=== PATIENT | male | born 1950 | race Caucasian/White ===

== ENCOUNTER 2017-01-25 12:30 | Inpatient (IN) | payer MEDICARE, OTHER ==
--- NOTE | 2017-01-25 12:35 | ED Physician Chart ---
Chief Complaint/HPI - Patient Information Date Seen:: 01/25/17 Time Seen:: 12:31 Chief Complaint:: agitation History of Present Illness:: 66-year-old male history of stroke and dementia, brought in by EMS from alf facility with acute, worsening, constant, moderate to severe, agitation 2-3 days. Has associated increased resistance to care and will not take his medications. Also has been reportedly playing with his bowel movements. History limited as patient has underlying dementia History provided by EMS, EMS run sheet and transfer sheet Historian:: EMS Review:: Nurse's Note Reviewed, EMS run form Reviewed, Transfer documents Reviewed, Patient unable to respond Review of Systems - Review of Systems Other: Complete system review otherwise unremarkable except as noted in HPI. Past Medical History - Past Medical History Past Medical History: HTN, DM, CVA/TIA, Dementia Family History: None Social History: Non Smoker, No Alcohol, No Drug Use, Care Facility Surgical History: None Psychiatricy History: None Medication: Reviewed Family Medical History - Family Member Mother History Unknown: Yes Ethnicity: Non- Physical Exam - Physical Examination Other:: INITIAL VITAL SIGNS: Reviewed by me GENERAL: Alert oriented to first name only. Demented, confused. Uncooperative. No acute distress HEAD: Head is normocephalic and atraumatic EYES: EOMI. . No scleral icterus. No conjunctival injection ENT: Moist mucous membranes. NECK: Supple. No masses. Full range of motion RESPIRATORY: No tachypnea. Clear breath sounds bilaterally. No wheezing, rales, or rhonchi CV: Regular rate and rhythm. No murmurs, rubs, or gallops ABDOMEN: Soft, non-distended, non-tender. No guarding. No rebound. No masses. EXTREMITIES: No deformity. No cyanosis. No edema. SKIN: Warm and dry. No obvious rashes. NEUROLOGIC: Alert and oriented. Face is symmetric. Speech is normal. Moves all extremities equally. Motor and sensory distally intact. Labs/Radiology/EKG Results - EKG Interpretations Comments:: 12-lead EKG Interpretation by April Cavazos MD: Normal Sinus Rhythm with ventricular rate of 87 beats per minute Normal axis Normal intervals No acute ST or T wave changes. No obvious STEMI ED Septic Shock - . Is Septic Shock (SBP<90, OR Lactate>4 mmol\L) present?: No Reassessment (Disposition) - Reassessment Reassessment:: Patient has UTI. Gave oral ciprofloxacin. Patient can continue on oral medications. Patient medically cleared for admission to the geriatric psych unit. Reassessment Condition:: Unchanged - Diagnosis Diagnosis:: Psychosis, NOS UTI, with hematuria Hypertension Dementia Diabetes mellitus type 2 - Patient Disposition Discharge/Transfer:: Acute Care w/in this hosp Admitted to:: [facility] Admitting Medical Physician:: Jeffy Brock Admitting Psych Physician:: Srini Flynn Time:: 12:58 Condition at Disposition:: Stable ED Discharge Plan - Patient Disposition Admit/Discharge/Transfer: Acute Care w/in this hosp
[2017-01-25 12:55] LABS: % BASOPHILS 0.6 % (0.0-2.0); % EOSINOPHILS 3.8 % (0.0-5.0); % LYMPHOCYTES 34.6 % (20.0-50.0); % MONOCYTES 9.4 % (2.0-10.0); % NEUTROPHILS 51.6 % (40.0-80.0); HEMATOCRIT 39.4 % (39.0-49.0); HEMOGLOBIN 13.2 gm/dL (12.6-17.4); MEAN CELL VOLUME 88.2 fl (80-99); MEAN CORPUSCULAR HEMOGLOBIN 29.5 pg (27.0-31.0); MEAN CORPUSCULAR HGB CONC 33.5 pg (28.0-36.0); MEAN PLATELET VOLUME 9.2 fl; NEUTROPHILE ABSOLUTE 4.5 Th/cmm (1.8-8.0); PLATELET COUNT 320 Th/cmm (150-400); RED BLOOD COUNT 4.46 Mil/cmm (3.80-5.80); RED CELL DISTRIBUTION WIDTH 13.3 % (11.5-20.0); WHITE BLOOD COUNT 8.7 Th/cmm (4.8-10.8)
[2017-01-25 13:06] VITALS: BP 130/74
[2017-01-25 13:14] LABS: ACETAMINOPHEN < 10.0 ug/mL (10.0-30.0); ANION GAP 9.3 (7.0-16.0); BUN - UREA NITROGEN 21 mg/dL (7-25); BUN/CREATININE RATIO 26.3; CALCIUM SERUM 9.6 mg/dL (8.6-10.3); CARBON DIOXIDE 28.8 mEq/L (21.0-31.0); CHLORIDE 103 mEq/L (98-107); CHOLESTEROL 178 mg/dL (<200); CREATININE - SERUM 0.8 mg/dL (0.7-1.3); GLUCOSE 146 mg/dL (70-105); POTASSIUM SERUM 4.1 mEq/L (3.5-5.1); SODIUM SERUM 137 mEq/L (136-145); TRIGLYCERIDES 219 mg/dL (<150)
[2017-01-25 13:19] LABS: URINE BILIRUBIN NEGATIVE (NEGATIVE); URINE BLOOD MODERATE (NEGATIVE); URINE COLOR YELLOW; URINE GLUCOSE (UA) NEGATIVE (NEGATIVE); URINE KETONE NEGATIVE (NEGATIVE)
[2017-01-25 13:20] LABS: URINE PH 7.5; URINE PROTEIN 100 mg/dL (NEGATIVE)
[2017-01-25 13:23] LABS: PROTHROMBIN TIME (TEST) 10.4 SECONDS (9.5-11.5)
[2017-01-25 13:24] LABS: URINE RBC 15-20 /hpf (0-5)
[2017-01-25 13:25] LABS: URINE BACTERIA FEW /hpf (NONE SEEN); URINE EPITHELIAL CELLS FEW /lpf (FEW)
--- NOTE | 2017-01-26 04:56 | Psychosocial Evaluation ---
JUSTIFICATION FOR HOSPITALIZATION: The patient was sent from a nursing facility with combative behaviors, agitated, hitting staff, yelling, screaming. CHIEF COMPLAINT: Combative. HISTORY OF PRESENT ILLNESS: A 66-year-old male who I was following at [facility]. The patient was noted to be combative, agitated, restless, hitting staff members, hitting nursing staff, yelling, screaming. Staff could not control him. The patient was agitated on exam, irritable, not answering any questions. PAST PSYCHIATRIC HISTORY: He has had behavioral disturbances. LABORATORY DATA: Reviewed. MEDICATIONS: Reviewed. SOCIAL HISTORY: The patient is living at [facility], needing a higher level of care. He does have a friend that sometimes visits. Unclear drugs, alcohol or tobacco history. MENTAL STATUS EXAMINATION: Appearance stated age. Some eye contact. Speech, selectively mute. Withdrawn. Mood, not answering. Affect is flat. Thought processes seem confused. Thought content, no overt SI or HI, but he is combative, seems suspicious, possibly paranoid, aggressive. Poor insight. Poor judgment. Poor impulse control. PROVISIONAL DIAGNOSES: Psychosis, unspecified, strong, dementia rule out with cognitive decline seemingly present, also mood unspecified, anxiety unspecified. MEDICAL: Please see full History and Physical. ESTIMATED LENGTH OF STAY: 5-10 days. PATIENT'S STRENGTHS: Good access to care. WEAKNESSES: Not enough social support. ASSESSMENT: The patient is requiring inpatient hospitalization, seems suspicious, agitated, combative, hitting staff, unable to care for himself and resistant to care. PLAN: We will titrate medications as tolerated. Treatment plan includes group as well as milieu therapy. CONDITIONS FOR DISCHARGE: Improved mood, improved affect, control of his aggression. JOB# [id number]
[2017-01-26] MEDS: Atorvastatin Calcium 10 MG TAB PO SCH (11:06)
[2017-01-26] MEDS: Multivitamin w/ Minerals Tab PO SCH (11:06)
[2017-01-26 12:21] LABS: HEP B CORE IGM Negative (Negative); HEP C ANTIBODY 0.1 s/co ratio (0.0-0.9)
--- NOTE | 2017-01-26 13:17 | History & Physical ---
PATIENT IDENTIFICATION: A 66-year-old male. CHIEF COMPLAINT: "I don't want anything." HISTORY SOURCE: Reviewing the chart and talking to staff at the [facility]. HISTORY OF PRESENT ILLNESS: A 66-year-old male who resides at [facility], transferred here to [facility] for evaluation of increasing agitations. The patient was seen by Emergency Room MD and subsequently admitted to the hospital for further treatment. The patient refused to provide any history due to his behavior and possible multiple medical problems. PAST MEDICAL HISTORY: Remarkable for: 1. Left MCA CVA with right hemiplegia. 2. Diabetes. 3. Hypertension. 4. Peripheral vascular disease. 5. Right internal carotid artery stenosis. 6. Hyperlipidemia. 7. History of paroxysmal atrial fibrillation. 8. Aphasia. 9. History of C. diff colitis. MEDICATIONS: At the time of transfer, which have been reviewed and reconciled appropriately. SOCIAL HISTORY: He is a custodial resident. The patient has no documented smoking cigarette, alcohol or drug use. FAMILY MEDICAL HISTORY: Not available. ALLERGIES: THE PATIENT IS ALLERGIC TO CODEINE AND SULFA. REVIEW OF SYSTEMS: Unable to obtain. PHYSICAL EXAMINATION: GENERAL: The patient is a 66-year-old, alert, awake, lying in the bed without any acute distress. VITAL SIGNS: Temperature 98.6, pulse is 74, respiratory rate 18, blood pressure 136/70. SKIN: Warm to touch. HEENT: Normocephalic, atraumatic. Extraocular muscles are intact. Tongue was pink and coated. Poor dentition noted. No facial asymmetry. NECK: Supple, no JVD, no lymphadenopathy, thyromegaly. Right carotid bruit noted. HEART: Both heart sounds are irregularly irregular. Grade 2/6 systolic murmur noted. CHEST: Lung equal in expansion, no wheezing, no crackles. ABDOMEN: Soft. No guarding, no rigidity. Liver, spleen palpable. No palpable mass. EXTREMITIES: No edema, no cyanosis. Peripheral pulses are +1. No calf tenderness noted. NEUROLOGIC: Alert, awake, follows commands. There is significant amount of spasticity on the right upper and lower extremity noted, more on the right, more in the upper than lower. Unable to assess further neurological exam due to patient being noncooperative. AVAILABLE DIAGNOSTIC DATA: Performed in the Emergency Room, which include EKG has a sinus rhythm with premature atrial contraction noted. PT and PTTs are normal. Urine is unremarkable, has a large leuk esterase, 10-50 wbc, bacteria were few, moderate amount of blood, protein was also noted. Lipid panel was checked was 178 cholesterol and calcium 9.6. BUN and creatinine is normal. Random blood sugar 146. Electrolytes are normal. Chest x-ray is unavailable for review. TSH of 2.49. CLINICAL IMPRESSION: 1. Increasing agitations in 66-year-old resident of custodial, has underlying psychiatric history as well. Etiology of agitations ruled out, exacerbation of underlying psychotic illness precipitated by possible urinary tract infection. 2. Benign prostatic hypertrophy. 3. Diabetes mellitus. 4. Hypertension. 5. Hyperlipidemia. 6. Degenerative joint disease. 7. Cerebrovascular accident with right-sided hemiplegia. 8. History of paroxysmal atrial fibrillation. 9. Degenerative joint disease. 10. Fall risk. 11. Questionable Parkinson disease. PLAN: The patient has been admitted at this time to psychiatric unit. The patient will be placed on Macrodantin 100 mg b.i.d. to treat the patient's urinary tract infection. In the presence of right internal carotid artery stenosis, history of atrial fibrillation along with cerebrovascular accident, the patient needs to be anticoagulated in the presence of nonvalvular atrial fibrillation, which is paroxysmal, the patient will be placed on anticoagulation therapy with Eliquis for now. The patient will be also continued on his other medications for his hypertension and diabetes. Continue to check Glucoscan. We will continue Flomax and we will provide the fall precautions. General nursing care will be given as well. We will continue to follow this patient during his stay at Gerops[facility] Unit at the [facility]. I sincerely thank you, Dr. Flynn, for giving me the opportunity to participate in the patient of yours. JOB# [id number]
[2017-01-26] MEDS: Dabigatran Mesylate 75 mg Cap PO SCH (18:45)
--- NOTE | 2017-01-26 23:49 | Progress Notes ---
SUBJECTIVE: The patient was seen, chart reviewed, and discussed with staff. The patient is currently in the hospital, agitated, combative, more confused, hitting staff at the nursing facility, striking out, resistant to care. On [id number], the patient remains resistant to care, refusing his medications, for example yelling at me, screaming at me, rambling nonsensically, not making any sense, agitated, needing prompting for ADLs, and prompting for eating. ASSESSMENT: The patient remains confused, selectively mute, at other times screaming, still agitated, combative, escalates fast, refusing medications. PLAN: Continue to monitor. The patient may need a Riese petition if he continues to refuse medication. JOB# [id number]
[2017-01-27] MEDS: Dabigatran Mesylate 75 mg Cap PO SCH ×2 (09:50→17:58)
[2017-01-27] MEDS: Atorvastatin Calcium 10 MG TAB PO SCH (09:50)
[2017-01-27] MEDS: Multivitamin w/ Minerals Tab PO SCH (09:50)
--- NOTE | 2017-01-28 01:49 | Progress Notes ---
PATIENT'S IDENTIFICATION: A 66-year-old male. CHIEF COMPLAINT: Yelling and screaming "I don't want to talk." HISTORY OF PRESENT ILLNESS: A 66-year-old male seen by me yesterday and I am doing medical followup today. The patient is extremely agitated as per nursing staff. The patient does not want any medications by p.o. at all and he is combative. On today's examination, temperature 97.2, pulse 82, respiratory rate 19, blood pressure 142/75. I was unable to assess this patient further due to the patient being noncooperative. Medication list has been reviewed. No new labwork for my review. Clean-catch urine was consistent with urinary tract infection, 100,000 colonies of gram-negative rods are growing. CLINICAL IMPRESSIONS: 1. Complicated urinary tract infection. 2. Benign prostatic hypertrophy. 3. Diabetes. 4. Hypertension. 5. Peripheral vascular disease. 6. Hyperlipidemia. 7. History of cerebrovascular accident with right-sided hemiplegia. 8. Degenerative joint disease. 9. Fall risk. PLAN: Discussed with nursing staff about consideration of intramuscular medications to control his behavior followed by continuation of the medications which he really needs for his UTI along with anticoagulation therapy for his atrial fibrillation and other medical problems. The patient is to continue to have monitoring of his blood sugar and resume medication as he needs while he is in the hospital. Care plan has been reviewed and discussed. JOB# [id number]
--- NOTE | 2017-01-28 06:09 | Progress Notes ---
SUBJECTIVE: The patient was seen, chart reviewed, and discussed with staff. The patient remains agitated, yelling, screaming, combative at times, refusing his medications, refusing treatments, unfriendly, aggressive at times. The patient is not making any sense, selectively mute, refusing and resistant to care. Unable to be cared for at a lower level of care. ASSESSMENT: The patient remains symptomatic and not be cared for at a lower level of care, still yelling and screaming. He is refusing his treatment and medicine. PLAN: We will continue to monitor. I may need to follow Riese petition. The patient is still dangerous. JOB# [id number]
[2017-01-28] MEDS: Atorvastatin Calcium 10 MG TAB PO SCH (09:31)
[2017-01-28] MEDS: Dabigatran Mesylate 75 mg Cap PO SCH ×2 (09:34→16:12)
[2017-01-28] MEDS: Multivitamin w/ Minerals Tab PO SCH (09:34)
[2017-01-29] MEDS: Atorvastatin Calcium 10 MG TAB PO SCH ×2 (08:53→09:00)
[2017-01-29] MEDS: Dabigatran Mesylate 75 mg Cap PO SCH ×4 (08:54→17:58)
[2017-01-29] MEDS: Multivitamin w/ Minerals Tab PO SCH ×2 (08:55→09:00)
--- NOTE | 2017-01-29 10:58 | Progress Notes ---
SUBJECTIVE: The patient was seen, chart reviewed, discussed with staff. The patient remains irritable, upset, still with yelling and screaming episodes, refusing medications, resistant to care, combative, hitting nursing staff, yelling, nonsensical, disorganized, eating with prompting. ASSESSMENT: The patient refusing care, resistant to care, agitated, combative, violent, not able to be cared for at a lower level of care. PLAN: Encourage med compliance. We may need to file channing JOB# [id number] MTDLeon
--- NOTE | 2017-01-30 03:30 | Progress Notes ---
SUBJECTIVE: The patient seen, chart reviewed and discussed with staff. The patient remains upset, agitated, yelling, screaming episodes, hyperverbal, mumbling, still combative, not really getting along well with staff, resistant to care. Sleeping fairly well, eating well, but requiring prompting to eat, prompting for ADLs, resistant to medications, at times was spitting them out ____ did encourage medication compliance. ASSESSMENT: The patient remains symptomatic, combative, still hitting staff and resistant to care. We will continue to monitor. Encourage better medication compliance. [facility]# [id number]
[2017-01-30] MEDS: Atorvastatin Calcium 10 MG TAB PO SCH (11:13)
[2017-01-30] MEDS: Dabigatran Mesylate 75 mg Cap PO SCH ×2 (11:13→17:34)
[2017-01-30] MEDS: Multivitamin w/ Minerals Tab PO SCH (11:15)
--- NOTE | 2017-01-30 22:08 | Progress Notes ---
Covering for Dr. Flynn. Case discussed with staff of the patient, reviewed records. This is a 66-year-old male who was admitted on 01/25 because of agitation, irritability. The patient has been refusing medication; when I tried to talk to him about that, he would not answer me, he kept saying no; when I asked if he want to change medication, he said no, he said to not have any problem, he would not talk about it. He continues to be irritable, yelling, and screaming episodes, refusing medication, resistant to care, combative with the nursing staff, unpredictable, impulsive, very disorganized. I am not sure if he may need to be released and I will leave this up to Dr. Flynn since I will be seeing him only today. He is on Aricept 5 mg at bedtime and Lexapro 10 mg daily, Risperdal 0.5 mg daily, but he has not taken it, so it does not make sense to adjust the dose when he has not taken the medication and so far, we will continue to work with the patient in group therapy, milieu therapy, adjust medication as needed. JOB# [id number]
--- NOTE | 2017-02-01 05:13 | Progress Notes ---
SUBJECTIVE: The patient seen, chart reviewed, discussed with staff. The patient at this time remains symptomatic, yelling, screaming episodes, combative, trying to hit staff at times. Sleeping fairly well, eating well, withdrawn, isolative, refusing his medications, not amenable to care, poor historian, resistant to care. ASSESSMENT: The patient was resistant to care, refusing medications, dangerous, yelling, screaming and cursing. PLAN: Continue to monitor. The patient may need a Riese petition, if he continues to refuse treatment. JOB# [id number]
[2017-02-01] MEDS: Dabigatran Mesylate 75 mg Cap PO SCH ×2 (08:33→16:10)
[2017-02-01] MEDS: Atorvastatin Calcium 10 MG TAB PO SCH (08:33)
[2017-02-01] MEDS: Multivitamin w/ Minerals Tab PO SCH (08:33)
--- NOTE | 2017-02-02 04:31 | Progress Notes ---
SUBJECTIVE: The patient seen, chart reviewed, discussed with staff. The patient remains combative upset, yelling, screaming, still aggressive towards staff, refusing medications, giving no reason other than "no," still up pointing and posturing. ASSESSMENT: The patient remains combative, aggressive, yelling, aggressive towards staff, resistant to care. PLAN: Currently pending a Riese petition, monitor closely for any overt side effects, encouraged medication compliance. JOB# [id number]
[2017-02-02] MEDS: Atorvastatin Calcium 10 MG TAB PO SCH (08:18)
[2017-02-02] MEDS: Dabigatran Mesylate 75 mg Cap PO SCH ×2 (08:18→16:00)
[2017-02-02] MEDS: Multivitamin w/ Minerals Tab PO SCH (08:19)
[2017-02-02] MEDS ORDERED: Haloperidol Lactate 5 mg/mL 1mL Vial ONE (18:07)
[2017-02-02] MEDS ORDERED: Haloperidol Lactate 5 mg/mL 1mL Vial IM ONE (18:07)
--- NOTE | 2017-02-02 23:59 | Progress Notes ---
SUBJECTIVE: The patient is still refusing medications, agitated, combative, yelling, posturing, not safe for a lower level of care. The patient is currently pending a Riese petition, still combative towards staff, resistant to care, unable to be cared for at a lower level of care. ASSESSMENT: The patient remains combative, not safe for discharge, refusing treatment and medications. PLAN: Currently pending a Riese petition. We will continue to monitor, encourage medication compliance. [facility]# [id number]
[2017-02-03] MEDS: Atorvastatin Calcium 10 MG TAB PO SCH (08:00)
[2017-02-03] MEDS: Multivitamin w/ Minerals Tab PO SCH (08:01)
[2017-02-03] MEDS: Haloperidol Lactate 5 mg/mL 1mL Vial IM PRN (17:46)
--- NOTE | 2017-02-04 00:36 | Progress Notes ---
SUBJECTIVE: The patient seen, chart reviewed, discussed with staff. The patient remains aggressive, violent, agitated, attacking nursing staff, not saying much, disorganized, confused. Riese hearing was upheld. The patient will be getting medicated against his will. The patient is still gravely disabled, still violent and dangerous, needing prompting for ADLs, highly withdrawn, isolated. ASSESSMENT: The patient remains psychotic, combative, violent. PLAN: We will give medications against his will. We will initiate Haldol. The patient is not safe for discharge, still combative. JOB# [id number]
[2017-02-04] MEDS: Atorvastatin Calcium 10 MG TAB PO SCH (09:09)
[2017-02-04] MEDS: Multivitamin w/ Minerals Tab PO SCH (09:09)
--- NOTE | 2017-02-05 03:36 | Progress Notes ---
SUBJECTIVE: Chart reviewed and the patient interviewed. Also discussed the patient's condition with the staff and reviewed records and labs. The patient Riese and he started to take medications. The patient did take his medications orally this morning. The patient is still aggressive and still has violent behavior and still needs lots of redirections. The patient also is confused and is thought processes are disorganized. The patient also is still unable to provide any safe plan for self-care. ASSESSMENT: The patient is still psychotic and needs lots of redirections. TREATMENT PLAN: We will continue to monitor his behavior and his condition closely. Also, continue adjusting psychotropic medications and working on his behavioral modification and we will continue to follow up. JOB# [id number]
[2017-02-05] MEDS: Atorvastatin Calcium 10 MG TAB PO SCH (08:51)
[2017-02-05] MEDS: Multivitamin w/ Minerals Tab PO SCH (08:52)
--- NOTE | 2017-02-05 21:29 | Progress Notes ---
SUBJECTIVE: Chart reviewed and the patient interviewed. Also discussed the patient's condition with the staff and reviewed records and labs. The patient is still resisting care at times and is still reluctant to take medications, but at the same time, he started to take medications orally after ____. The patient also is still at times gets agitated and angry and in irritable mood. Also, his thoughts are disorganized. The patient also still need help with his ADLs and still at times gets to violent with staff, who tries to help him with his ADLs. Otherwise, no side effects of medications. ASSESSMENT: The patient is still psychotic and considered to be gravely disabled and can be dangerous to others. TREATMENT PLAN: We will continue monitoring his behavior and his condition closely. Also, continue adjusting psychotropic medications and we will continue to follow up closely. JOB# [id number]
[2017-02-06] MEDS: Atorvastatin Calcium 10 MG TAB PO SCH ×2 (10:11→10:12)
[2017-02-06] MEDS: Multivitamin w/ Minerals Tab PO SCH (10:26)
--- NOTE | 2017-02-07 01:57 | Progress Notes ---
SUBJECTIVE: The patient seen, chart reviewed, and discussed with staff. The patient remains symptomatic, still yelling, scratching, still refusing medications, currently under Riese petition, seems to be calming down a little bit, still __currently__ nonsensical, still refusing medications from time to time. ASSESSMENT: The patient is refusing medications and is agitated, combative, and violent. PLAN: Continue to monitor. Continue medications at current dose __, continue__ _ Haldol Decanoate. JOB# [id number] MTDD
[2017-02-07] MEDS: Multivitamin w/ Minerals Tab PO SCH (08:52)
[2017-02-07] MEDS: Atorvastatin Calcium 10 MG TAB PO SCH (08:52)
[2017-02-08] MEDS: Atorvastatin Calcium 10 MG TAB PO SCH ×2 (09:59→10:00)
[2017-02-08] MEDS: Multivitamin w/ Minerals Tab PO SCH ×2 (10:00)
[2017-02-08] MEDS: Haloperidol Lactate 5 mg/mL 1mL Vial IM PRN (10:20)
--- NOTE | 2017-02-08 19:36 | Progress Notes ---
SUBJECTIVE: The patient was seen, chart reviewed, and discussed with staff. The patient remains symptomatic, still with bizarre behaviors, psychotic behaviors, yelling, playing with feces, throwing feces, and the patient is still requiring emergency intramuscular backup. Riese petition was upheld, but the patient's behaviors still remain quite bizarre. The patient is currently on Haldol. Will need an increase of his dose. No side effects noted. No EPS for example, still resistive to care. ASSESSMENT: The patient with bizarre, disorganized, psychotic, and dangerous behaviors as noted, throwing feces, smearing feces, agitated, aggressive, and yelling. PLAN: Increase Haldol today. Monitor closely. The patient is not safe for discharge. JOB# [id number]
--- NOTE | 2017-02-09 00:04 | Progress Notes ---
SUBJECTIVE: The patient seen, chart reviewed, discussed with staff. The patient remains symptomatic, intermittently refusing medications still. Haldol Decanoate was ordered. The patient still lashing out at staff, still combative; however, he does seems to be calmer and more redirectable, plus the yelling and screaming episodes, seems to be tolerating medication at current dose. No overt side effects noted. Sleeping fairly well. Still awaiting prompting for eating and ADLs. ASSESSMENT AND PLAN: Some improvement noted, but still intermittently refusing medications. Currently on Haldol Decanoate. Poor insight. Poor impulse control. We will continue to monitor closely. JOB# [id number]
[2017-02-09] MEDS: Atorvastatin Calcium 10 MG TAB PO SCH (09:03)
[2017-02-09] MEDS: Multivitamin w/ Minerals Tab PO SCH (09:03)
[2017-02-09] MEDS: Haloperidol Lactate 5 mg/mL 1mL Vial IM PRN ×2 (09:04→16:18)
--- NOTE | 2017-02-09 16:53 | Internal Medicine Prog Note ---
Internal Medicine Subjective - Subjective Patient seen and examined:: with staff, chart reviewed Patient is:: awake, non-verbal, non-interactive Per staff patient is:: no adverse event, poor appetite, confused Internal Medicine Objective - Results Result Diagrams: 01/25/17 12:45 01/25/17 12:45 Recent Labs: Laboratory Last Values WBC 8.7 Th/cmm (4.8-10.8) 01/25/17 12:45 RBC 4.46 Mil/cmm (3.80-5.80) 01/25/17 12:45 Hgb 13.2 gm/dL (12.6-17.4) 01/25/17 12:45 Hct 39.4 % (39.0-49.0) 01/25/17 12:45 MCV 88.2 fl (80-99) 01/25/17 12:45 MCH 29.5 pg (27.0-31.0) 01/25/17 12:45 MCHC Differential 33.5 pg (28.0-36.0) 01/25/17 12:45 RDW 13.3 % (11.5-20.0) 01/25/17 12:45 Plt Count 320 Th/cmm (150-400) 01/25/17 12:45 MPV 9.2 fl 01/25/17 12:45 Neutrophils % 51.6 % (40.0-80.0) 01/25/17 12:45 Lymphocytes % 34.6 % (20.0-50.0) 01/25/17 12:45 Monocytes % 9.4 % (2.0-10.0) 01/25/17 12:45 Eosinophils % 3.8 % (0.0-5.0) 01/25/17 12:45 Basophils % 0.6 % (0.0-2.0) 01/25/17 12:45 PT 10.4 SECONDS (9.5-11.5) 01/25/17 12:45 INR 1.00 (0.5-1.4) 01/25/17 12:45 PTT (Actin FS) 25.0 SECONDS (26.0-38.0) L 01/25/17 12:45 Sodium 137 mEq/L (136-145) 01/25/17 12:45 Potassium 4.1 mEq/L (3.5-5.1) 01/25/17 12:45 Chloride 103 mEq/L (98-107) 01/25/17 12:45 Carbon Dioxide 28.8 mEq/L (21.0-31.0) 01/25/17 12:45 Anion Gap 9.3 (7.0-16.0) 01/25/17 12:45 BUN 21 mg/dL (7-25) 01/25/17 12:45 Creatinine 0.8 mg/dL (0.7-1.3) 01/25/17 12:45 Est GFR ( Amer) > 60.0 ml/min (>90) 01/25/17 12:45 Est GFR (Non-Af Amer) > 60.0 ml/min 01/25/17 12:45 BUN/Creatinine Ratio 26.3 01/25/17 12:45 Glucose 146 mg/dL (70-105) H 01/25/17 12:45 Calcium 9.6 mg/dL (8.6-10.3) 01/25/17 12:45 Triglycerides 219 mg/dL (<150) H 01/25/17 12:45 Cholesterol 178 mg/dL (<200) 01/25/17 12:45 LDL Cholesterol Direct 133 mg/dL (75-193) 01/25/17 12:45 HDL Cholesterol 22 mg/dL (23-92) L 01/25/17 12:45 TSH 2.49 uIU/ml (0.34-5.60) 01/25/17 12:45 Urine Source CLEAN C 01/25/17 12:45 Urine Color YELLOW 01/25/17 12:45 Urine Clarity SL. CLOUDY (CLEAR) 01/25/17 12:45 Urine pH 7.5 01/25/17 12:45 Ur Specific [place] 1.020 (1.005-1.030) 01/25/17 12:45 Urine Protein 100 mg/dL (NEGATIVE) H 01/25/17 12:45 Urine Glucose (UA) NEGATIVE mg/dL (NEGATIVE) 01/25/17 12:45 Urine Ketones NEGATIVE mg/dL (NEGATIVE) 01/25/17 12:45 Urine Blood MODERATE (NEGATIVE) H 01/25/17 12:45 Urine Nitrate NEGATIVE (NEGATIVE) 01/25/17 12:45 Urine Bilirubin NEGATIVE (NEGATIVE) 01/25/17 12:45 Urine Urobilinogen 1.0 E.U./dL (0.2 - 1.0) 01/25/17 12:45 Ur Leukocyte Esterase LARGE (NEGATIVE) H 01/25/17 12:45 Urine RBC 15-20 /hpf (0-5) 01/25/17 12:45 Urine WBC 10-25 /hpf (0-5) H 01/25/17 12:45 Ur Epithelial Cells FEW /lpf (FEW) 01/25/17 12:45 Urine Bacteria FEW /hpf (NONE SEEN) 01/25/17 12:45 Salicylates < 25.0 mg/L (30.0-100.0) L 01/25/17 12:45 Acetaminophen < 10.0 ug/mL (10.0-30.0) L 01/25/17 12:45 Hepatitis A IgM Ab Negative (Negative) 01/25/17 12:45 Hep Bs Antigen Negative (Negative) 01/25/17 12:45 Hep B Core IgM Ab Negative (Negative) 01/25/17 12:45 Hepatitis C Antibody 0.1 s/co ratio (0.0-0.9) 01/25/17 12:45 - Physical Exam Vitals and I&O: Vital Signs Temp 97.8 F 02/09/17 15:08 Pulse 79 02/09/17 15:08 Resp 16 02/09/17 15:08 BP 118/72 02/09/17 15:08 Pulse Ox 97 02/07/17 19:51 Intake & Output 02/08/17 02/09/17 02/09/17 18:59 06:59 18:59 Intake Total 850 120 Balance 850 120 Weight (lbs) 64.138 kg Intake: Oral 850 120 Other: # Voids 2 3 # Bowel Movements 1 Active Medications: Current Medications Atorvastatin Calcium (Lipitor) 10 mg PO DAILY MEHNAZ PRN Reason: Protocol Stop: 03/27/17 08:59 Last Admin: 02/09/17 09:03 Dose: Not Given Bromocriptine Mesylate (Parlodel) 2.5 mg PO HS MEHNAZ Stop: 03/26/17 20:59 Last Admin: 02/08/17 20:56 Dose: Not Given Donepezil HCl (Aricept) 5 mg PO DAILY MEHNAZ Stop: 03/27/17 08:59 Last Admin: 02/09/17 09:03 Dose: Not Given Escitalopram Oxalate (Lexapro) 10 mg PO DAILY MEHNAZ PRN Reason: Protocol Stop: 03/28/17 08:59 Last Admin: 02/09/17 09:03 Dose: Not Given Haloperidol (Haldol) 2 mg PO BID MEHNAZ PRN Reason: Protocol Stop: 04/09/17 12:26 Last Admin: 02/09/17 16:26 Dose: Not Given Haloperidol Decanoate (Haldol Dec) 25 mg IM QMONTH MEHNAZ PRN Reason: Protocol Stop: 04/08/17 16:59 Last Admin: 02/07/17 17:43 Dose: 25 mg Haloperidol Lactate (Haldol) 2 mg IM BID PRN PRN Reason: Agitation Stop: 04/04/17 11:47 Last Admin: 02/09/17 16:18 Dose: 2 mg Lisinopril (Zestril) 20 mg PO DAILY [facility] Stop: 03/27/17 08:59 Last Admin: 02/09/17 09:03 Dose: Not Given Tamsulosin HCl (Flomax) 0.4 mg PO DAILY [facility] Stop: 03/27/17 08:59 Last Admin: 02/09/17 09:03 Dose: Not Given General: demented HEENT: NC/AT, PERRLA Neck: Supple, No JVD Lungs: CTAB Cardiovascular: RRR, Normal S1, Normal S2 Abdomen: soft non-tender, globular, positive bowel sound Extremities: excoriation, contracture Neurological: no change Internal Medicine Assmt/Plan - Assessment Assessment: dm uti bph cva dementia htn - Plan Plan: cont on ada iss fall precation aspiration precaution dw rn Nutritional Asmnt/Malnutr-PDOC - Dietary Evaluation Malnutrition Findings (Please click <Entered> for more info): Nutritional Asmnt/Malnutrition Start: 01/30/17 11: 08 Text: Status: Complete Freq: Document 01/30/17 11:08 GSUN (Rec: 01/30/17 11:25 GSVERONICA [email or web address]) Nutritional Asmnt/Malnutrition Patient General Information Nutritional Screening Moderate Risk Screening Diagnosis Agitation Pertinent Medical Hx/Surgical Hx Psychosis (unspecified), DM, HTN, left MCA CVA with right hemiplegia, peripheral vascular disease, right internal carotid artery stenosis, hyperlipidemia, hx of paroxysmal atrial fibrillation, aphasia, hx of C diff. colitis Subjective Information 66 year old male from SNF. Pt appeared internally occupied, remained silent for all of RD' s questions, then finally yelled "get out of here!" Spoke to RN Lisette, pt has been refusing meds/vitals, however tolerating meals fine, no nutritional concerns. Avg PO intake 100% yesterday, meeting nutritional needs. Current Diet Order/ Nutrition Support [id number] Pertinent Medications Lipitor Pertinent Labs 01/25: glucose 146H, triglycerides 219H Nutritional Hx/Data Height 1.75 m Height (Calculated Centimeters) 175.3 Current Weight (lbs) 71.849 kg Weight (Calculated Kilograms) 71.8 Weight (Calculated Grams) 85029.0 [place] Body Weight 160lb Weight Status Approriate GI Symptoms Food Allergies No Cultural/Ethnic/Sikh Belief Unknown. Usual diet at home Unknown. Skin Integrity/Comment: Brandyn 16. Current %PO Good (75-100%) Estimated Nutritional Goals BEE in Kcals: Using Current wt Calories/Kcals/Kg 25-30kcal/kg Kcals Calculated 1795-2154kcal Protein: Using Current wt Protein g/kg/kg Protein Calculated 72g Fluid: ml 1795-2154ml Nutritional Problem 1. Problem Problem Altered nutrition related laboratory values related to Etiology DM aeb Signs/Symptoms: H&P dx, 01/25 glucose 146H Intervention/Recommendation Comments 1. Continue with [id number] diet . Current PO intake is adequate. Expected Outcomes/Goals Expected Outcomes/Goals 1. PO intake continue to meet at least 75% of estimated nutritional needs.
[2017-02-10] MEDS: Multivitamin w/ Minerals Tab PO SCH (09:09)
[2017-02-10] MEDS: Atorvastatin Calcium 10 MG TAB PO SCH (09:09)
--- NOTE | 2017-02-10 14:19 | Internal Medicine Prog Note ---
Internal Medicine Subjective - Subjective Service Date: 02/10/17 Internal Medicine Objective - Results Result Diagrams: 01/25/17 12:45 01/25/17 12:45 Recent Labs: Laboratory Last Values WBC 8.7 Th/cmm (4.8-10.8) 01/25/17 12:45 RBC 4.46 Mil/cmm (3.80-5.80) 01/25/17 12:45 Hgb 13.2 gm/dL (12.6-17.4) 01/25/17 12:45 Hct 39.4 % (39.0-49.0) 01/25/17 12:45 MCV 88.2 fl (80-99) 01/25/17 12:45 MCH 29.5 pg (27.0-31.0) 01/25/17 12:45 MCHC Differential 33.5 pg (28.0-36.0) 01/25/17 12:45 RDW 13.3 % (11.5-20.0) 01/25/17 12:45 Plt Count 320 Th/cmm (150-400) 01/25/17 12:45 MPV 9.2 fl 01/25/17 12:45 Neutrophils % 51.6 % (40.0-80.0) 01/25/17 12:45 Lymphocytes % 34.6 % (20.0-50.0) 01/25/17 12:45 Monocytes % 9.4 % (2.0-10.0) 01/25/17 12:45 Eosinophils % 3.8 % (0.0-5.0) 01/25/17 12:45 Basophils % 0.6 % (0.0-2.0) 01/25/17 12:45 PT 10.4 SECONDS (9.5-11.5) 01/25/17 12:45 INR 1.00 (0.5-1.4) 01/25/17 12:45 PTT (Actin FS) 25.0 SECONDS (26.0-38.0) L 01/25/17 12:45 Sodium 137 mEq/L (136-145) 01/25/17 12:45 Potassium 4.1 mEq/L (3.5-5.1) 01/25/17 12:45 Chloride 103 mEq/L (98-107) 01/25/17 12:45 Carbon Dioxide 28.8 mEq/L (21.0-31.0) 01/25/17 12:45 Anion Gap 9.3 (7.0-16.0) 01/25/17 12:45 BUN 21 mg/dL (7-25) 01/25/17 12:45 Creatinine 0.8 mg/dL (0.7-1.3) 01/25/17 12:45 Est GFR ( Amer) > 60.0 ml/min (>90) 01/25/17 12:45 Est GFR (Non-Af Amer) > 60.0 ml/min 01/25/17 12:45 BUN/Creatinine Ratio 26.3 01/25/17 12:45 Glucose 146 mg/dL (70-105) H 01/25/17 12:45 Calcium 9.6 mg/dL (8.6-10.3) 01/25/17 12:45 Triglycerides 219 mg/dL (<150) H 01/25/17 12:45 Cholesterol 178 mg/dL (<200) 01/25/17 12:45 LDL Cholesterol Direct 133 mg/dL (75-193) 01/25/17 12:45 HDL Cholesterol 22 mg/dL (23-92) L 01/25/17 12:45 TSH 2.49 uIU/ml (0.34-5.60) 01/25/17 12:45 Urine Source CLEAN C 01/25/17 12:45 Urine Color YELLOW 01/25/17 12:45 Urine Clarity SL. CLOUDY (CLEAR) 01/25/17 12:45 Urine pH 7.5 01/25/17 12:45 Ur Specific [place] 1.020 (1.005-1.030) 01/25/17 12:45 Urine Protein 100 mg/dL (NEGATIVE) H 01/25/17 12:45 Urine Glucose (UA) NEGATIVE mg/dL (NEGATIVE) 01/25/17 12:45 Urine Ketones NEGATIVE mg/dL (NEGATIVE) 01/25/17 12:45 Urine Blood MODERATE (NEGATIVE) H 01/25/17 12:45 Urine Nitrate NEGATIVE (NEGATIVE) 01/25/17 12:45 Urine Bilirubin NEGATIVE (NEGATIVE) 01/25/17 12:45 Urine Urobilinogen 1.0 E.U./dL (0.2 - 1.0) 01/25/17 12:45 Ur Leukocyte Esterase LARGE (NEGATIVE) H 01/25/17 12:45 Urine RBC 15-20 /hpf (0-5) 01/25/17 12:45 Urine WBC 10-25 /hpf (0-5) H 01/25/17 12:45 Ur Epithelial Cells FEW /lpf (FEW) 01/25/17 12:45 Urine Bacteria FEW /hpf (NONE SEEN) 01/25/17 12:45 Salicylates < 25.0 mg/L (30.0-100.0) L 01/25/17 12:45 Acetaminophen < 10.0 ug/mL (10.0-30.0) L 01/25/17 12:45 Hepatitis A IgM Ab Negative (Negative) 01/25/17 12:45 Hep Bs Antigen Negative (Negative) 01/25/17 12:45 Hep B Core IgM Ab Negative (Negative) 01/25/17 12:45 Hepatitis C Antibody 0.1 s/co ratio (0.0-0.9) 01/25/17 12:45 - Physical Exam Vitals and I&O: Vital Signs Temp 97.8 F 02/09/17 15:08 Pulse 79 02/09/17 15:08 Resp 18 02/09/17 20:00 BP 118/72 02/09/17 15:08 Pulse Ox 97 02/07/17 19:51 Intake & Output 02/09/17 02/10/17 02/10/17 18:59 06:59 18:59 Intake Total 1700 120 Balance 1700 120 Intake: Oral 1700 120 Other: # Voids 4 3 Active Medications: Current Medications Atorvastatin Calcium (Lipitor) 10 mg PO DAILY MEHNAZ PRN Reason: Protocol Stop: 03/27/17 08:59 Last Admin: 02/10/17 09:09 Dose: Not Given Bromocriptine Mesylate (Parlodel) 2.5 mg PO HS MEHNAZ Stop: 03/26/17 20:59 Last Admin: 02/09/17 21:03 Dose: 2.5 mg Donepezil HCl (Aricept) 5 mg PO DAILY MEHNAZ Stop: 03/27/17 08:59 Last Admin: 02/10/17 09:09 Dose: Not Given Escitalopram Oxalate (Lexapro) 10 mg PO DAILY MEHNAZ PRN Reason: Protocol Stop: 03/28/17 08:59 Last Admin: 02/10/17 08:48 Dose: 10 mg Haloperidol (Haldol) 2 mg PO BID MEHNAZ PRN Reason: Protocol Stop: 04/09/17 12:26 Last Admin: 02/10/17 08:48 Dose: 2 mg Haloperidol Decanoate (Haldol Dec) 25 mg IM QMONTH MEHNAZ PRN Reason: Protocol Stop: 04/08/17 16:59 Last Admin: 02/07/17 17:43 Dose: 25 mg Haloperidol Lactate (Haldol) 2 mg IM BID PRN PRN Reason: Agitation Stop: 04/04/17 11:47 Last Admin: 02/09/17 16:18 Dose: 2 mg Lisinopril (Zestril) 20 mg PO DAILY [facility] Stop: 03/27/17 08:59 Last Admin: 02/10/17 09:09 Dose: Not Given Tamsulosin HCl (Flomax) 0.4 mg PO DAILY [facility] Stop: 03/27/17 08:59 Last Admin: 02/10/17 09:09 Dose: Not Given Internal Medicine Assmt/Plan - Assessment Assessment: dm uti bph cva dementia htn - Plan Plan: MONITOR GLUCOSE FALL PRECAUTIONS CPM Nutritional Asmnt/Malnutr-PDOC - Dietary Evaluation Malnutrition Findings (Please click <Entered> for more info): Nutritional Asmnt/Malnutrition Start: 01/30/17 11: 08 Text: Status: Complete Freq: Document 01/30/17 11:08 GSUN (Rec: 01/30/17 11:25 GSUN [email or web address]) Nutritional Asmnt/Malnutrition Patient General Information Nutritional Screening Moderate Risk Screening Diagnosis Agitation Pertinent Medical Hx/Surgical Hx Psychosis (unspecified), DM, HTN, left MCA CVA with right hemiplegia, peripheral vascular disease, right internal carotid artery stenosis, hyperlipidemia, hx of paroxysmal atrial fibrillation, aphasia, hx of C diff. colitis Subjective Information 66 year old male from SNF. Pt appeared internally occupied, remained silent for all of RD' s questions, then finally yelled "get out of here!" Spoke to TARAH Knox, pt has been refusing meds/vitals, however tolerating meals fine, no nutritional concerns. Avg PO intake 100% yesterday, meeting nutritional needs. Current Diet Order/ Nutrition Support [id number] Pertinent Medications Lipitor Pertinent Labs 01/25: glucose 146H, triglycerides 219H Nutritional Hx/Data Height 5 ft 9 in Height (Calculated Centimeters) 175.3 Current Weight (lbs) 158 lb 6.4 oz Weight (Calculated Kilograms) 71.8 Weight (Calculated Grams) 66169.0 [place] Body Weight 160lb Weight Status Approriate GI Symptoms Food Allergies No Cultural/Ethnic/Gnosticism Belief Unknown. Usual diet at home Unknown. Skin Integrity/Comment: Brandyn 16. Current %PO Good (75-100%) Estimated Nutritional Goals BEE in Kcals: Using Current wt Calories/Kcals/Kg 25-30kcal/kg Kcals Calculated 1795-2154kcal Protein: Using Current wt Protein g/kg/kg Protein Calculated 72g Fluid: ml 1795-2154ml Nutritional Problem 1. Problem Problem Altered nutrition related laboratory values related to Etiology DM aeb Signs/Symptoms: H&P dx, 01/25 glucose 146H Intervention/Recommendation Comments 1. Continue with [id number] diet . Current PO intake is adequate. Expected Outcomes/Goals Expected Outcomes/Goals 1. PO intake continue to meet at least 75% of estimated nutritional needs.
--- NOTE | 2017-02-10 18:59 | Progress Notes ---
SUBJECTIVE: The patient still remains symptomatic, refusing medications, smearing feces, psychotic and disorganized behaviors, refusing interview, withdrawn, guarded, lashing out, still physical altercations with staff, and resistant to care. No EPS noted. No side effects. ASSESSMENT: The patient remains symptomatic, still aggressive, refusing medications, needing intramuscular injections. PLAN: We will continue to monitor increased medications. The patient is not safe for discharge. Encourage med compliance. [facility]# [id number]
--- NOTE | 2017-02-10 23:15 | Progress Notes ---
SUBJECTIVE: The patient was seen, chart reviewed, and discussed with staff. The patient remains symptomatic, still upset, lashing out at staff at times, still at times refusing medications. Continued concerns for his safety and the safety of staff. The patient with disorganized and psychotic behaviors, smearing feces while in the unit. Tolerant to medications. No side effects. ASSESSMENT: The patient remains resistive to care, still agitated, refusing medications, under [place] petition. PLAN: Continue to monitor. Continue medications at current dose. No side effects noted. No EPS. The patient remains symptomatic. Not safe for discharge. JOB# [id number]
[2017-02-11] MEDS: Atorvastatin Calcium 10 MG TAB PO SCH (09:34)
[2017-02-11] MEDS: Multivitamin w/ Minerals Tab PO SCH (09:35)
--- NOTE | 2017-02-11 12:32 | Internal Medicine Prog Note ---
Internal Medicine Subjective - Subjective Patient seen and examined:: with staff, chart reviewed Patient is:: awake, verbal, interactive Per staff patient is:: no adverse event, confused Internal Medicine Objective - Results Result Diagrams: 01/25/17 12:45 01/25/17 12:45 Recent Labs: Laboratory Last Values WBC 8.7 Th/cmm (4.8-10.8) 01/25/17 12:45 RBC 4.46 Mil/cmm (3.80-5.80) 01/25/17 12:45 Hgb 13.2 gm/dL (12.6-17.4) 01/25/17 12:45 Hct 39.4 % (39.0-49.0) 01/25/17 12:45 MCV 88.2 fl (80-99) 01/25/17 12:45 MCH 29.5 pg (27.0-31.0) 01/25/17 12:45 MCHC Differential 33.5 pg (28.0-36.0) 01/25/17 12:45 RDW 13.3 % (11.5-20.0) 01/25/17 12:45 Plt Count 320 Th/cmm (150-400) 01/25/17 12:45 MPV 9.2 fl 01/25/17 12:45 Neutrophils % 51.6 % (40.0-80.0) 01/25/17 12:45 Lymphocytes % 34.6 % (20.0-50.0) 01/25/17 12:45 Monocytes % 9.4 % (2.0-10.0) 01/25/17 12:45 Eosinophils % 3.8 % (0.0-5.0) 01/25/17 12:45 Basophils % 0.6 % (0.0-2.0) 01/25/17 12:45 PT 10.4 SECONDS (9.5-11.5) 01/25/17 12:45 INR 1.00 (0.5-1.4) 01/25/17 12:45 PTT (Actin FS) 25.0 SECONDS (26.0-38.0) L 01/25/17 12:45 Sodium 137 mEq/L (136-145) 01/25/17 12:45 Potassium 4.1 mEq/L (3.5-5.1) 01/25/17 12:45 Chloride 103 mEq/L (98-107) 01/25/17 12:45 Carbon Dioxide 28.8 mEq/L (21.0-31.0) 01/25/17 12:45 Anion Gap 9.3 (7.0-16.0) 01/25/17 12:45 BUN 21 mg/dL (7-25) 01/25/17 12:45 Creatinine 0.8 mg/dL (0.7-1.3) 01/25/17 12:45 Est GFR ( Amer) > 60.0 ml/min (>90) 01/25/17 12:45 Est GFR (Non-Af Amer) > 60.0 ml/min 01/25/17 12:45 BUN/Creatinine Ratio 26.3 01/25/17 12:45 Glucose 146 mg/dL (70-105) H 01/25/17 12:45 Calcium 9.6 mg/dL (8.6-10.3) 01/25/17 12:45 Triglycerides 219 mg/dL (<150) H 01/25/17 12:45 Cholesterol 178 mg/dL (<200) 01/25/17 12:45 LDL Cholesterol Direct 133 mg/dL (75-193) 01/25/17 12:45 HDL Cholesterol 22 mg/dL (23-92) L 01/25/17 12:45 TSH 2.49 uIU/ml (0.34-5.60) 01/25/17 12:45 Urine Source CLEAN C 01/25/17 12:45 Urine Color YELLOW 01/25/17 12:45 Urine Clarity SL. CLOUDY (CLEAR) 01/25/17 12:45 Urine pH 7.5 01/25/17 12:45 Ur Specific [place] 1.020 (1.005-1.030) 01/25/17 12:45 Urine Protein 100 mg/dL (NEGATIVE) H 01/25/17 12:45 Urine Glucose (UA) NEGATIVE mg/dL (NEGATIVE) 01/25/17 12:45 Urine Ketones NEGATIVE mg/dL (NEGATIVE) 01/25/17 12:45 Urine Blood MODERATE (NEGATIVE) H 01/25/17 12:45 Urine Nitrate NEGATIVE (NEGATIVE) 01/25/17 12:45 Urine Bilirubin NEGATIVE (NEGATIVE) 01/25/17 12:45 Urine Urobilinogen 1.0 E.U./dL (0.2 - 1.0) 01/25/17 12:45 Ur Leukocyte Esterase LARGE (NEGATIVE) H 01/25/17 12:45 Urine RBC 15-20 /hpf (0-5) 01/25/17 12:45 Urine WBC 10-25 /hpf (0-5) H 01/25/17 12:45 Ur Epithelial Cells FEW /lpf (FEW) 01/25/17 12:45 Urine Bacteria FEW /hpf (NONE SEEN) 01/25/17 12:45 Salicylates < 25.0 mg/L (30.0-100.0) L 01/25/17 12:45 Acetaminophen < 10.0 ug/mL (10.0-30.0) L 01/25/17 12:45 Hepatitis A IgM Ab Negative (Negative) 01/25/17 12:45 Hep Bs Antigen Negative (Negative) 01/25/17 12:45 Hep B Core IgM Ab Negative (Negative) 01/25/17 12:45 Hepatitis C Antibody 0.1 s/co ratio (0.0-0.9) 01/25/17 12:45 - Physical Exam Vitals and I&O: Vital Signs Temp 98.2 F 02/10/17 14:37 Pulse 91 02/10/17 14:37 Resp 18 02/10/17 20:00 BP 117/63 02/10/17 14:37 Pulse Ox 98 02/10/17 14:37 Intake & Output 02/10/17 02/11/17 02/11/17 18:59 06:59 18:59 Intake Total 1200 Balance 1200 Intake: Oral 1200 Other: # Bowel Movements 1 Active Medications: Current Medications Atorvastatin Calcium (Lipitor) 10 mg PO DAILY MEHNAZ PRN Reason: Protocol Stop: 03/27/17 08:59 Last Admin: 02/11/17 09:34 Dose: Not Given Bromocriptine Mesylate (Parlodel) 2.5 mg PO HS [facility] Stop: 03/26/17 20:59 Last Admin: 02/10/17 20:33 Dose: 2.5 mg Donepezil HCl (Aricept) 5 mg PO DAILY MEHNAZ Stop: 03/27/17 08:59 Last Admin: 02/11/17 09:34 Dose: 5 mg Escitalopram Oxalate (Lexapro) 10 mg PO DAILY MEHNAZ PRN Reason: Protocol Stop: 03/28/17 08:59 Last Admin: 02/11/17 09:34 Dose: 10 mg Haloperidol (Haldol) 2 mg PO BID MEHNAZ PRN Reason: Protocol Stop: 04/09/17 12:26 Last Admin: 02/11/17 09:34 Dose: 2 mg Haloperidol Decanoate (Haldol Dec) 25 mg IM QMONTH MEHNAZ PRN Reason: Protocol Stop: 04/08/17 16:59 Last Admin: 02/07/17 17:43 Dose: 25 mg Haloperidol Lactate (Haldol) 2 mg IM BID PRN PRN Reason: Agitation Stop: 04/04/17 11:47 Last Admin: 02/09/17 16:18 Dose: 2 mg Lisinopril (Zestril) 20 mg PO DAILY [facility] Stop: 03/27/17 08:59 Last Admin: 02/11/17 09:34 Dose: Not Given Tamsulosin HCl (Flomax) 0.4 mg PO DAILY [facility] Stop: 03/27/17 08:59 Last Admin: 02/11/17 09:35 Dose: Not Given General: demented HEENT: NC/AT, PERRLA Neck: Supple, No JVD Lungs: CTAB Cardiovascular: RRR, Normal S1, Normal S2 Abdomen: soft non-tender, globular Extremities: excoriation, contracture Neurological: no change Internal Medicine Assmt/Plan - Assessment Assessment: dm uti bph cva dementia htn - Plan Plan: cont on ada iss fall precation aspiration precaution dw rn Nutritional Asmnt/Malnutr-PDOC - Dietary Evaluation Malnutrition Findings (Please click <Entered> for more info): Nutritional Asmnt/Malnutrition Start: 01/30/17 11: 08 Text: Status: Complete Freq: Document 01/30/17 11:08 GSUN (Rec: 01/30/17 11:25 GSUN [email or web address]) Nutritional Asmnt/Malnutrition Patient General Information Nutritional Screening Moderate Risk Screening Diagnosis Agitation Pertinent Medical Hx/Surgical Hx Psychosis (unspecified), DM, HTN, left MCA CVA with right hemiplegia, peripheral vascular disease, right internal carotid artery stenosis, hyperlipidemia, hx of paroxysmal atrial fibrillation, aphasia, hx of C diff. colitis Subjective Information 66 year old male from SNF. Pt appeared internally occupied, remained silent for all of RD' s questions, then finally yelled "get out of here!" Spoke to RN Lisette, pt has been refusing meds/vitals, however tolerating meals fine, no nutritional concerns. Avg PO intake 100% yesterday, meeting nutritional needs. Current Diet Order/ Nutrition Support [address] Pertinent Medications Lipitor Pertinent Labs 01/25: glucose 146H, triglycerides 219H Nutritional Hx/Data Height 1.75 m Height (Calculated Centimeters) 175.3 Current Weight (lbs) 71.849 kg Weight (Calculated Kilograms) 71.8 Weight (Calculated Grams) 31624.0 [place] Body Weight 160lb Weight Status Approriate GI Symptoms Food Allergies No Cultural/Ethnic/Anabaptist Belief Unknown. Usual diet at home Unknown. Skin Integrity/Comment: Brandyn 16. Current %PO Good (75-100%) Estimated Nutritional Goals BEE in Kcals: Using Current wt Calories/Kcals/Kg 25-30kcal/kg Kcals Calculated 1795-2154kcal Protein: Using Current wt Protein g/kg/kg Protein Calculated 72g Fluid: ml 1795-2154ml Nutritional Problem 1. Problem Problem Altered nutrition related laboratory values related to Etiology DM aeb Signs/Symptoms: H&P dx, 01/25 glucose 146H Intervention/Recommendation Comments 1. Continue with [address] diet . Current PO intake is adequate. Expected Outcomes/Goals Expected Outcomes/Goals 1. PO intake continue to meet at least 75% of estimated nutritional needs.
--- NOTE | 2017-02-12 03:47 | Progress Notes ---
SUBJECTIVE: The patient was seen, chart reviewed, and discussed with staff. Staff noted some improvement. The patient seems to be calmer, more cooperative, less yelling episodes, less screaming episode, still somewhat bizarre in his demeanor, limited ____, not really able to participate in a meaningful conversation. Less resistant to care. No longer striking out. Sleeping fairly well, eating with prompting, and ADLs with prompting. ASSESSMENT: The patient remains symptomatic, still with yelling behaviors, but less. He does appear to be less agitated and aggressive. PLAN: We will continue to monitor. The patient seems to be tolerant of medications. For example, no extrapyramidal side effects noted. He does not appear, however, sedated. JOB# [id number]
[2017-02-12] MEDS: Atorvastatin Calcium 10 MG TAB PO SCH (08:33)
[2017-02-12] MEDS: Multivitamin w/ Minerals Tab PO SCH (08:33)
--- NOTE | 2017-02-12 20:11 | Internal Medicine Prog Note ---
Internal Medicine Subjective - Subjective Patient seen and examined:: with staff, chart reviewed Patient is:: awake, verbal, interactive Per staff patient is:: no adverse event, noncompliant, confused Internal Medicine Objective - Results Result Diagrams: 01/25/17 12:45 01/25/17 12:45 Recent Labs: Laboratory Last Values WBC 8.7 Th/cmm (4.8-10.8) 01/25/17 12:45 RBC 4.46 Mil/cmm (3.80-5.80) 01/25/17 12:45 Hgb 13.2 gm/dL (12.6-17.4) 01/25/17 12:45 Hct 39.4 % (39.0-49.0) 01/25/17 12:45 MCV 88.2 fl (80-99) 01/25/17 12:45 MCH 29.5 pg (27.0-31.0) 01/25/17 12:45 MCHC Differential 33.5 pg (28.0-36.0) 01/25/17 12:45 RDW 13.3 % (11.5-20.0) 01/25/17 12:45 Plt Count 320 Th/cmm (150-400) 01/25/17 12:45 MPV 9.2 fl 01/25/17 12:45 Neutrophils % 51.6 % (40.0-80.0) 01/25/17 12:45 Lymphocytes % 34.6 % (20.0-50.0) 01/25/17 12:45 Monocytes % 9.4 % (2.0-10.0) 01/25/17 12:45 Eosinophils % 3.8 % (0.0-5.0) 01/25/17 12:45 Basophils % 0.6 % (0.0-2.0) 01/25/17 12:45 PT 10.4 SECONDS (9.5-11.5) 01/25/17 12:45 INR 1.00 (0.5-1.4) 01/25/17 12:45 PTT (Actin FS) 25.0 SECONDS (26.0-38.0) L 01/25/17 12:45 Sodium 137 mEq/L (136-145) 01/25/17 12:45 Potassium 4.1 mEq/L (3.5-5.1) 01/25/17 12:45 Chloride 103 mEq/L (98-107) 01/25/17 12:45 Carbon Dioxide 28.8 mEq/L (21.0-31.0) 01/25/17 12:45 Anion Gap 9.3 (7.0-16.0) 01/25/17 12:45 BUN 21 mg/dL (7-25) 01/25/17 12:45 Creatinine 0.8 mg/dL (0.7-1.3) 01/25/17 12:45 Est GFR ( Amer) > 60.0 ml/min (>90) 01/25/17 12:45 Est GFR (Non-Af Amer) > 60.0 ml/min 01/25/17 12:45 BUN/Creatinine Ratio 26.3 01/25/17 12:45 Glucose 146 mg/dL (70-105) H 01/25/17 12:45 Calcium 9.6 mg/dL (8.6-10.3) 01/25/17 12:45 Triglycerides 219 mg/dL (<150) H 01/25/17 12:45 Cholesterol 178 mg/dL (<200) 01/25/17 12:45 LDL Cholesterol Direct 133 mg/dL (75-193) 01/25/17 12:45 HDL Cholesterol 22 mg/dL (23-92) L 01/25/17 12:45 TSH 2.49 uIU/ml (0.34-5.60) 01/25/17 12:45 Urine Source CLEAN C 01/25/17 12:45 Urine Color YELLOW 01/25/17 12:45 Urine Clarity SL. CLOUDY (CLEAR) 01/25/17 12:45 Urine pH 7.5 01/25/17 12:45 Ur Specific [place] 1.020 (1.005-1.030) 01/25/17 12:45 Urine Protein 100 mg/dL (NEGATIVE) H 01/25/17 12:45 Urine Glucose (UA) NEGATIVE mg/dL (NEGATIVE) 01/25/17 12:45 Urine Ketones NEGATIVE mg/dL (NEGATIVE) 01/25/17 12:45 Urine Blood MODERATE (NEGATIVE) H 01/25/17 12:45 Urine Nitrate NEGATIVE (NEGATIVE) 01/25/17 12:45 Urine Bilirubin NEGATIVE (NEGATIVE) 01/25/17 12:45 Urine Urobilinogen 1.0 E.U./dL (0.2 - 1.0) 01/25/17 12:45 Ur Leukocyte Esterase LARGE (NEGATIVE) H 01/25/17 12:45 Urine RBC 15-20 /hpf (0-5) 01/25/17 12:45 Urine WBC 10-25 /hpf (0-5) H 01/25/17 12:45 Ur Epithelial Cells FEW /lpf (FEW) 01/25/17 12:45 Urine Bacteria FEW /hpf (NONE SEEN) 01/25/17 12:45 Salicylates < 25.0 mg/L (30.0-100.0) L 01/25/17 12:45 Acetaminophen < 10.0 ug/mL (10.0-30.0) L 01/25/17 12:45 Hepatitis A IgM Ab Negative (Negative) 01/25/17 12:45 Hep Bs Antigen Negative (Negative) 01/25/17 12:45 Hep B Core IgM Ab Negative (Negative) 01/25/17 12:45 Hepatitis C Antibody 0.1 s/co ratio (0.0-0.9) 01/25/17 12:45 - Physical Exam Vitals and I&O: Vital Signs Temp 98.1 F 02/12/17 16:26 Pulse 85 02/12/17 16:26 Resp 20 02/12/17 16:26 BP 136/78 02/12/17 16:26 Pulse Ox 97 02/12/17 16:26 Intake & Output 02/12/17 02/12/17 02/13/17 06:59 18:59 06:59 Intake Total 800 120 Balance 800 120 Intake: Oral 800 120 Other: # Voids 4 1 # Bowel Movements 2 Active Medications: Current Medications Atorvastatin Calcium (Lipitor) 10 mg PO DAILY [facility] PRN Reason: Protocol Stop: 03/27/17 08:59 Last Admin: 02/12/17 08:33 Dose: 10 mg Bromocriptine Mesylate (Parlodel) 2.5 mg PO HS [facility] Stop: 03/26/17 20:59 Last Admin: 02/11/17 20:49 Dose: 2.5 mg Donepezil HCl (Aricept) 5 mg PO DAILY [facility] Stop: 03/27/17 08:59 Last Admin: 02/12/17 08:33 Dose: 5 mg Escitalopram Oxalate (Lexapro) 10 mg PO DAILY [facility] PRN Reason: Protocol Stop: 03/28/17 08:59 Last Admin: 02/12/17 08:33 Dose: 10 mg Haloperidol (Haldol) 2 mg PO BID [facility] PRN Reason: Protocol Stop: 04/09/17 12:26 Last Admin: 02/12/17 16:52 Dose: 2 mg Haloperidol Decanoate (Haldol Dec) 25 mg IM QMONTH [facility] PRN Reason: Protocol Stop: 04/08/17 16:59 Last Admin: 02/07/17 17:43 Dose: 25 mg Haloperidol Lactate (Haldol) 2 mg IM BID PRN PRN Reason: Agitation Stop: 04/04/17 11:47 Last Admin: 02/09/17 16:18 Dose: 2 mg Lisinopril (Zestril) 20 mg PO DAILY [facility] Stop: 03/27/17 08:59 Last Admin: 02/12/17 08:33 Dose: Not Given Tamsulosin HCl (Flomax) 0.4 mg PO DAILY [facility] Stop: 03/27/17 08:59 Last Admin: 02/12/17 08:33 Dose: 0.4 mg General: demented HEENT: NC/AT, PERRLA Neck: Supple, No JVD Lungs: CTAB Cardiovascular: RRR, Normal S1, Normal S2, without murmur Abdomen: soft non-tender, globular, positive bowel sound Extremities: excoriation Neurological: no change Internal Medicine Assmt/Plan - Assessment Assessment: dm uti bph cva dementia htn - Plan Plan: cont on ada iss fall precation aspiration precaution dw rn Nutritional Asmnt/Malnutr-PDOC - Dietary Evaluation Malnutrition Findings (Please click <Entered> for more info): Nutritional Asmnt/Malnutrition Start: 01/30/17 11: 08 Text: Status: Complete Freq: Document 01/30/17 11:08 GSUN (Rec: 01/30/17 11:25 [facility] Nutritional Asmnt/Malnutrition Patient General Information Nutritional Screening Moderate Risk Screening Diagnosis Agitation Pertinent Medical Hx/Surgical Hx Psychosis (unspecified), DM, HTN, left MCA CVA with right hemiplegia, peripheral vascular disease, right internal carotid artery stenosis, hyperlipidemia, hx of paroxysmal atrial fibrillation, aphasia, hx of C diff. colitis Subjective Information 66 year old male from SNF. Pt appeared internally occupied, remained silent for all of RD' s questions, then finally yelled "get out of here!" Spoke to RN Lisette, pt has been refusing meds/vitals, however tolerating meals fine, no nutritional concerns. Avg PO intake 100% yesterday, meeting nutritional needs. Current Diet Order/ Nutrition Support [id number] Pertinent Medications Lipitor Pertinent Labs 01/25: glucose 146H, triglycerides 219H Nutritional Hx/Data Height 1.75 m Height (Calculated Centimeters) 175.3 Current Weight (lbs) 71.849 kg Weight (Calculated Kilograms) 71.8 Weight (Calculated Grams) 34281.0 [place] Body Weight 160lb Weight Status Approriate GI Symptoms Food Allergies No Cultural/Ethnic/Yazidi Belief Unknown. Usual diet at home Unknown. Skin Integrity/Comment: Brandyn 16. Current %PO Good (75-100%) Estimated Nutritional Goals BEE in Kcals: Using Current wt Calories/Kcals/Kg 25-30kcal/kg Kcals Calculated 1795-2154kcal Protein: Using Current wt Protein g/kg/kg Protein Calculated 72g Fluid: ml 1795-2154ml Nutritional Problem 1. Problem Problem Altered nutrition related laboratory values related to Etiology DM aeb Signs/Symptoms: H&P dx, 01/25 glucose 146H Intervention/Recommendation Comments 1. Continue with [id number] diet . Current PO intake is adequate. Expected Outcomes/Goals Expected Outcomes/Goals 1. PO intake continue to meet at least 75% of estimated nutritional needs.
--- NOTE | 2017-02-12 20:59 | Progress Notes ---
SUBJECTIVE: The patient seen, chart reviewed, discussed with staff. The patient seems to be improving albeit slowly, more cooperative, less yelling episodes, less lashing out, less aggressive, less violent towards staff, more amenable to care. He is taking his medications, but is needing some prompting, tolerant to medications. No side effects, no EPS. Sleeping fairly well, eating with prompting. ASSESSMENT: Improvement noted, seems to be calmer, less aggressive, less screaming episodes. PLAN: Continue to encourage medication compliance. We will continue to monitor and monitor for any side effects. JOB# [id number]
[2017-02-13] MEDS: Multivitamin w/ Minerals Tab PO SCH (08:05)
[2017-02-13] MEDS: Atorvastatin Calcium 10 MG TAB PO SCH (08:05)
--- NOTE | 2017-02-13 13:12 | Internal Medicine Prog Note ---
Internal Medicine Subjective - Subjective Service Date: 02/13/17 Patient seen and examined:: with staff Patient is:: awake Per staff patient is:: no adverse event Internal Medicine Objective - Results Result Diagrams: 01/25/17 12:45 01/25/17 12:45 Recent Labs: Laboratory Last Values WBC 8.7 Th/cmm (4.8-10.8) 01/25/17 12:45 RBC 4.46 Mil/cmm (3.80-5.80) 01/25/17 12:45 Hgb 13.2 gm/dL (12.6-17.4) 01/25/17 12:45 Hct 39.4 % (39.0-49.0) 01/25/17 12:45 MCV 88.2 fl (80-99) 01/25/17 12:45 MCH 29.5 pg (27.0-31.0) 01/25/17 12:45 MCHC Differential 33.5 pg (28.0-36.0) 01/25/17 12:45 RDW 13.3 % (11.5-20.0) 01/25/17 12:45 Plt Count 320 Th/cmm (150-400) 01/25/17 12:45 MPV 9.2 fl 01/25/17 12:45 Neutrophils % 51.6 % (40.0-80.0) 01/25/17 12:45 Lymphocytes % 34.6 % (20.0-50.0) 01/25/17 12:45 Monocytes % 9.4 % (2.0-10.0) 01/25/17 12:45 Eosinophils % 3.8 % (0.0-5.0) 01/25/17 12:45 Basophils % 0.6 % (0.0-2.0) 01/25/17 12:45 PT 10.4 SECONDS (9.5-11.5) 01/25/17 12:45 INR 1.00 (0.5-1.4) 01/25/17 12:45 PTT (Actin FS) 25.0 SECONDS (26.0-38.0) L 01/25/17 12:45 Sodium 137 mEq/L (136-145) 01/25/17 12:45 Potassium 4.1 mEq/L (3.5-5.1) 01/25/17 12:45 Chloride 103 mEq/L (98-107) 01/25/17 12:45 Carbon Dioxide 28.8 mEq/L (21.0-31.0) 01/25/17 12:45 Anion Gap 9.3 (7.0-16.0) 01/25/17 12:45 BUN 21 mg/dL (7-25) 01/25/17 12:45 Creatinine 0.8 mg/dL (0.7-1.3) 01/25/17 12:45 Est GFR ( Amer) > 60.0 ml/min (>90) 01/25/17 12:45 Est GFR (Non-Af Amer) > 60.0 ml/min 01/25/17 12:45 BUN/Creatinine Ratio 26.3 01/25/17 12:45 Glucose 146 mg/dL (70-105) H 01/25/17 12:45 Calcium 9.6 mg/dL (8.6-10.3) 01/25/17 12:45 Triglycerides 219 mg/dL (<150) H 01/25/17 12:45 Cholesterol 178 mg/dL (<200) 01/25/17 12:45 LDL Cholesterol Direct 133 mg/dL (75-193) 01/25/17 12:45 HDL Cholesterol 22 mg/dL (23-92) L 01/25/17 12:45 TSH 2.49 uIU/ml (0.34-5.60) 01/25/17 12:45 Urine Source CLEAN C 01/25/17 12:45 Urine Color YELLOW 01/25/17 12:45 Urine Clarity SL. CLOUDY (CLEAR) 01/25/17 12:45 Urine pH 7.5 01/25/17 12:45 Ur Specific [place] 1.020 (1.005-1.030) 01/25/17 12:45 Urine Protein 100 mg/dL (NEGATIVE) H 01/25/17 12:45 Urine Glucose (UA) NEGATIVE mg/dL (NEGATIVE) 01/25/17 12:45 Urine Ketones NEGATIVE mg/dL (NEGATIVE) 01/25/17 12:45 Urine Blood MODERATE (NEGATIVE) H 01/25/17 12:45 Urine Nitrate NEGATIVE (NEGATIVE) 01/25/17 12:45 Urine Bilirubin NEGATIVE (NEGATIVE) 01/25/17 12:45 Urine Urobilinogen 1.0 E.U./dL (0.2 - 1.0) 01/25/17 12:45 Ur Leukocyte Esterase LARGE (NEGATIVE) H 01/25/17 12:45 Urine RBC 15-20 /hpf (0-5) 01/25/17 12:45 Urine WBC 10-25 /hpf (0-5) H 01/25/17 12:45 Ur Epithelial Cells FEW /lpf (FEW) 01/25/17 12:45 Urine Bacteria FEW /hpf (NONE SEEN) 01/25/17 12:45 Salicylates < 25.0 mg/L (30.0-100.0) L 01/25/17 12:45 Acetaminophen < 10.0 ug/mL (10.0-30.0) L 01/25/17 12:45 Hepatitis A IgM Ab Negative (Negative) 01/25/17 12:45 Hep Bs Antigen Negative (Negative) 01/25/17 12:45 Hep B Core IgM Ab Negative (Negative) 01/25/17 12:45 Hepatitis C Antibody 0.1 s/co ratio (0.0-0.9) 01/25/17 12:45 - Physical Exam Vitals and I&O: Vital Signs Temp 0 F 02/13/17 05:34 Pulse 85 02/12/17 16:26 Resp 20 02/12/17 16:26 BP 136/78 02/12/17 16:26 Pulse Ox 97 02/12/17 16:26 Intake & Output 02/12/17 02/13/17 02/13/17 18:59 06:59 18:59 Intake Total 800 120 Balance 800 120 Intake: Oral 800 120 Other: # Voids 4 3 # Bowel Movements 2 0 Active Medications: Current Medications Atorvastatin Calcium (Lipitor) 10 mg PO DAILY [facility] PRN Reason: Protocol Stop: 03/27/17 08:59 Last Admin: 02/13/17 08:05 Dose: 10 mg Bromocriptine Mesylate (Parlodel) 2.5 mg PO HS [facility] Stop: 03/26/17 20:59 Last Admin: 02/12/17 20:56 Dose: 2.5 mg Donepezil HCl (Aricept) 5 mg PO DAILY [facility] Stop: 03/27/17 08:59 Last Admin: 02/13/17 08:05 Dose: 5 mg Escitalopram Oxalate (Lexapro) 10 mg PO DAILY [facility] PRN Reason: Protocol Stop: 03/28/17 08:59 Last Admin: 02/13/17 08:05 Dose: 10 mg Haloperidol (Haldol) 2 mg PO BID [facility] PRN Reason: Protocol Stop: 04/09/17 12:26 Last Admin: 02/13/17 08:05 Dose: 2 mg Haloperidol Decanoate (Haldol Dec) 25 mg IM QMONTH [facility] PRN Reason: Protocol Stop: 04/08/17 16:59 Last Admin: 02/07/17 17:43 Dose: 25 mg Haloperidol Lactate (Haldol) 2 mg IM BID PRN PRN Reason: Agitation Stop: 04/04/17 11:47 Last Admin: 02/09/17 16:18 Dose: 2 mg Lisinopril (Zestril) 20 mg PO DAILY [facility] Stop: 03/27/17 08:59 Last Admin: 02/13/17 08:06 Dose: Not Given Tamsulosin HCl (Flomax) 0.4 mg PO DAILY [facility] Stop: 03/27/17 08:59 Last Admin: 02/13/17 08:05 Dose: 0.4 mg General: alert HEENT: NC/AT, PERRLA Neck: Supple Lungs: CTAB Cardiovascular: RRR, Normal S1, Normal S2, without murmur Abdomen: soft non-tender, non-distended Extremities: clear Internal Medicine Assmt/Plan - Assessment Assessment: dm uti bph cva dementia htn - Plan Plan: MONITOR GLUCOSE FALL PRECAUTIONS CPM Nutritional Asmnt/Malnutr-PDOC - Dietary Evaluation Malnutrition Findings (Please click <Entered> for more info): Nutritional Asmnt/Malnutrition Start: 01/30/17 11: 08 Text: Status: Complete Freq: Document 01/30/17 11:08 GSUN (Rec: 01/30/17 11:25 GSUN [email or web address]) Nutritional Asmnt/Malnutrition Patient General Information Nutritional Screening Moderate Risk Screening Diagnosis Agitation Pertinent Medical Hx/Surgical Hx Psychosis (unspecified), DM, HTN, left MCA CVA with right hemiplegia, peripheral vascular disease, right internal carotid artery stenosis, hyperlipidemia, hx of paroxysmal atrial fibrillation, aphasia, hx of C diff. colitis Subjective Information 66 year old male from SNF. Pt appeared internally occupied, remained silent for all of RD' s questions, then finally yelled "get out of here!" Spoke to RN Lisette, pt has been refusing meds/vitals, however tolerating meals fine, no nutritional concerns. Avg PO intake 100% yesterday, meeting nutritional needs. Current Diet Order/ Nutrition Support [id number] Pertinent Medications Lipitor Pertinent Labs 01/25: glucose 146H, triglycerides 219H Nutritional Hx/Data Height 5 ft 9 in Height (Calculated Centimeters) 175.3 Current Weight (lbs) 158 lb 6.4 oz Weight (Calculated Kilograms) 71.8 Weight (Calculated Grams) 80333.0 [place] Body Weight 160lb Weight Status Approriate GI Symptoms Food Allergies No Cultural/Ethnic/Oriental Orthodox Belief Unknown. Usual diet at home Unknown. Skin Integrity/Comment: Brandyn 16. Current %PO Good (75-100%) Estimated Nutritional Goals BEE in Kcals: Using Current wt Calories/Kcals/Kg 25-30kcal/kg Kcals Calculated 1795-2154kcal Protein: Using Current wt Protein g/kg/kg Protein Calculated 72g Fluid: ml 1795-2154ml Nutritional Problem 1. Problem Problem Altered nutrition related laboratory values related to Etiology DM aeb Signs/Symptoms: H&P dx, 01/25 glucose 146H Intervention/Recommendation Comments 1. Continue with [address] diet . Current PO intake is adequate. Expected Outcomes/Goals Expected Outcomes/Goals 1. PO intake continue to meet at least 75% of estimated nutritional needs.
--- NOTE | 2017-02-13 21:34 | Discharge Summary ---
JUSTIFICATION FOR HOSPITALIZATION: The patient was transferred from a nursing facility, combative, agitated. HISTORY OF PRESENT ILLNESS: A 66-year-old male, combative, agitated, restless, hitting staff members, screaming and yelling uncontrollably, refusing treatment. PAST PSYCHIATRIC HISTORY: Behavioral disturbances. SOCIAL HISTORY: Living in a senior living. MENTAL STATUS EXAMINATION: Please see full psych eval for details. PROVISIONAL DIAGNOSES: Psychosis, unspecified, dementia with cognitive decline seemingly present; also mood, unspecified; anxiety, unspecified. PAST MEDICAL HISTORY: Please see full H and P. HOSPITAL COURSE: After initial assessment, the patient was started on medications; however, he was refusing, a [place] petition was filed, the patient was started on Haldol and Haldol Decanoate. Over the course of the hospitalization, he improved, his mood improved, his affect improved, getting along better with staff and peers. No longer agitated, no longer hitting staff, also yelling less. By 02/13/2017, placement was confirmed and he was discharged. CONDITION UPON DISCHARGE: Improved, less resistance to care, more amenable to treatment, no more yelling episodes, no longer hitting staff, no suicidal gestures, no evidence of overt psychosis, no longer dangerous, tolerant to medications, no side effects, taking his medications without any prompting or redirection. DISCHARGE DIAGNOSES: Psychosis, unspecified; cognitive decline, rule out dementia; mood, unspecified; anxiety, unspecified; poor medication and treatment compliance. MEDICAL: Please see full H and P. PROGNOSIS: If the patient follows up with this clinician in 7-10 days, takes his medications as directed and remains treatment compliant and follows his treatment plan, prognosis will improve, otherwise guarded. [facility]# [id number]
== END 2017-02-13 16:11 | DRG 884 ==
LOC: ER 12:30 → GERO 14:12
PROVIDERS: ADMIT Psychiatry & Neurology Psychiatry; ATTEND Psychiatry & Neurology Psychiatry
DX: F03.90 Unspecified dementia, unspecified severity, without behavioral disturbance, psychotic disturbance, mood disturbance, and anxiety (principal); E11.51 Type 2 diabetes mellitus with diabetic peripheral angiopathy without gangrene; I69.351 Hemiplegia and hemiparesis following cerebral infarction affecting right dominant side; N39.0 Urinary tract infection, site not specified; I10 Essential (primary) hypertension; F29 Unspecified psychosis not due to a substance or known physiological condition; R31.9 Hematuria, unspecified; F41.9 Anxiety disorder, unspecified; I65.21 Occlusion and stenosis of right carotid artery; E78.5 Hyperlipidemia, unspecified; I48.0 Paroxysmal atrial fibrillation; M19.90 Unspecified osteoarthritis, unspecified site; N40.0 Benign prostatic hyperplasia without lower urinary tract symptoms; Z91.81 History of falling; Z91.14 Patient's other noncompliance with medication regimen; Z88.2 Allergy status to sulfonamides; Z88.5 Allergy status to narcotic agent
CPT/HCPCS: 36415-UA; 7610; 80048-TC; 80061-TC; 80074-90; 80329-TC; 81001-TC; 84443-TC; 85025-TC; 85610-TC; 85730-TC; 87086-90; 93005; J1200; J1630; J1631; J2060; Z7610